=== PATIENT | female | born 2000 | race Caucasian/White ===

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

== ENCOUNTER → 2020-04-04 13:35 | Outpatient (CLI) | payer OTHER, SELFPAY ==
[2020-04-04 14:27] LABS: Add Manual Diff / Slide Review NO; Basophils Absolute Auto 0 /uL (0-100); Basophils Percent Auto 0.7 % (0-2); Eosinophils Absolute Auto 200 /uL (0-450); Eosinophils Percent Auto 4.1 % (2-4); Hemoglobin 13.7 g/dL (12.0-16.0); Lymphocytes Absolute Auto 2100 /uL (1100-4500); Lymphocytes Percent Auto 36.9 % (25-40); Mean Corpuscular HGB Conc 33.4 % (30-36); Mean Corpuscular Hemoglobin 28.7 PG (26-34); Monocytes Absolute Auto 400 /uL (0-900); Monocytes Percent Auto 7.5 % (3-14); Neutrophils Absolute Auto 2900 /uL (1500-7000); Neutrophils Percent Auto 50.8 % (50-75); Platelet Count 196 X10^3/uL (150-400); Red Blood Cell Count 4.77 X10^6/uL (4.0-5.2); Red Cell Distribution Width 12.9 % (11.6-14.8); White Blood Cell Count 5.8 X10^3/uL (4.5-11.0)
[2020-04-04 14:48] LABS: Erythrocyte Sedimentation Rate 2 MM/HR (0-20)
[2020-04-04 15:04] LABS: Alanine Aminotransferase 16 IU/L (<35); Albumin 4.2 g/dL (3.5-5.0); Albumin Globulin Ratio 1.8 (1.0-2.8); Alkaline Phosphatase 40 U/L (38-126); Aspartate Aminotransferase 24 IU/L (14-36); BUN Creatinine Ratio 28.1 (6-22); Bilirubin Total 0.4 mg/dL (0.2-1.3); Bilirubin Unconjugated 0.4 mg/dL (0.0-1.1); Blood Urea Nitrogen 18 mg/dL (7-17); Calcium 9.6 mg/dL (8.4-10.2); Carbon Dioxide 29 mmol/L (22-32); Chloride 103 mmol/L (98-107); Estimated Glomerular Filt Rate > 60.0 mL/min (>60); Globulin 2.4 g/dL (1.7-4.1); Glucose 91 mg/dL (70-100); HEMOLYSIS < 15 (0-50); Sodium 138 mmol/L (137-145); Total Protein 6.6 g/dL (6.3-8.2); Uric Acid 4.7 mg/dL (2.5-6.2)
[2020-04-04 15:05] LABS: C-Reactive Protein Quant < 0.5 mg/dL (<1.0)
[2020-04-04 15:06] LABS: Rheumatoid Factor < 8.6 IU/mL (<12.0)
[2020-04-04 15:33] LABS: Thyroid Stimulating Hormone 0.709 uIU/mL (0.47-4.68)
[2020-04-04 16:49] LABS: Vitamin D 25 Hydroxy (D3) 49.1 ng/mL (30.0-100.0)
[2020-04-05 19:36] LABS: ANA Screen, IFA Negative (.)
[2020-04-06 19:10] LABS: CCP Antibodies IgG/IgA 3 units (0-19)
[2020-04-10 14:39] LABS: HLA B27 Negative (.)
== END ==
PROVIDERS: Referring Provider Podiatrist Foot & Ankle Surgery; Visit Provider Podiatrist Foot & Ankle Surgery
DX: M13.879 Other specified arthritis, unspecified ankle and foot (principal); E55.9 Vitamin D deficiency, unspecified
CPT/HCPCS: 36415; 80048; 80076; 81374; 82306; 82330; 84439; 84443; 84550; 85025; 85651; 86038; 86140; 86200; 86430; 86617

== ENCOUNTER → 2020-04-20 12:31 | Outpatient (CLI) | payer OTHER, SELFPAY ==
[2020-04-20 13:04] LABS: Appearance Urine UA CLEAR; Bilirubin Urine UA NEGATIVE (NEGATIVE); Color Urine UA YELLOW; Glucose Urine UA NEGATIVE (Negative); Ketones Urine UA NEGATIVE (NEGATIVE); Leukocyte Esterase Urine UA NEGATIVE (NEGATIVE); Nitrite Urine UA NEGATIVE (Negative); Occult Blood Urine UA NEGATIVE (Negative); Protein Urine UA NEGATIVE (Negative); Urobilinogen Urine UA 0.2 E.U./dL (0.2)
[2020-04-20 13:08] LABS: Pregnancy Test Urine Negative (Negative)
[2020-04-20 14:59] LABS: Urine N gonorrhoeae NOT DETECTED
[2020-04-20 15:56] LABS: Urine Chlamydia NOT DETECTED
[2020-04-20 16:19] LABS: HIV 1 & 2 Ab/Ag 4th Gen Combo NEGATIVE (NEGATIVE)
[2020-04-21 03:36] LABS: RPR Screen Non Reactive (Non Reactive)
[2020-04-21 04:39] LABS: HBsAg Screen Negative (Negative); Hepatitis A Antibody IgM Negative (Negative); Hepatitis B Core Antibody IgM Negative (Negative); Hepatitis C Antibody <0.1 s/co ratio (0.0-0.9)
== END ==
PROVIDERS: Referring Provider Registered Nurse; Visit Provider Registered Nurse
DX: Z32.00 Encounter for pregnancy test, result unknown (principal); Z20.2 Contact with and (suspected) exposure to infections with a predominantly sexual mode of transmission
CPT/HCPCS: 36415; 80074; 81003; 81025; 86592; 87389; 87491; 87591

== ENCOUNTER → 2022-09-16 14:40 | Outpatient (CLI) | payer OTHER, SELFPAY ==
[2022-09-16 16:17] LABS: Urine N gonorrhoeae NOT DETECTED
[2022-09-16 16:19] LABS: Urine Chlamydia NOT DETECTED
== END ==
PROVIDERS: Visit Provider Registered Nurse
DX: N89.8 Other specified noninflammatory disorders of vagina (principal)
CPT/HCPCS: 87210; 87491; 87591

== ENCOUNTER → 2022-09-17 10:16 | Outpatient (CLI) | payer OTHER, SELFPAY ==
[2022-09-18 03:39] LABS: HSV 2 IGG AB < 0.91 index (0.00-0.90); HSV1IGG < 0.91 index (0.00-0.90)
[2022-09-18 08:47] LABS: RPR Screen Non Reactive (Non Reactive)
[2022-09-18 17:27] LABS: HIV 1 & 2 Ab/Ag 4th Gen Combo NEGATIVE (NEGATIVE); Hep C Virus Ab w/Reflex Quant NEGATIVE s/c (NEGATIVE); Hepatitis B Surface Antigen NEGATIVE s/c (NEGATIVE)
== END ==
PROVIDERS: Referring Provider Nurse Practitioner Family; Visit Provider Nurse Practitioner Family
DX: N89.8 Other specified noninflammatory disorders of vagina (principal)
CPT/HCPCS: 36415; 86592; 86695; 86696; 86803; 87340; 87389